=== PATIENT | male | born 1950 | race Caucasian/White ===

== ENCOUNTER 2019-11-28 06:24 | Day surgery (SDC) | payer MEDICARE, OTHER ==
[~2019-11-28] VITALS: Ht 188 cm; Wt 129.7 kg
--- NOTE | ~2019-11-28 | OR ---
[facility] [address], [place] [address] Draft DATE OF OPERATION: 11/28/2019 SURGEON: Tristian Dewitt MD PREOPERATIVE DIAGNOSES: 1. History of hyperplastic polyp 2012. 2. Family history of colon cancer (father). 3. Episodic rectal bleeding. POSTOPERATIVE DIAGNOSES: Sigmoid and left-sided diverticulosis. No evidence of polyps or cancer. PROCEDURE: Total colonoscopy to cecum. ANESTHESIA: Intravenous sedation, fentanyl 100 mcg and Versed 7 mg. INDICATION: This 69-year-old white man is a patient of Vicki Ugalde and known to me from the past having undergone colonoscopy in 2012 at which time he was found to have a hyperplastic polyp. He has family history of colon cancer in his father, who of the disease. The patient does have episodic rectal bleeding. He is admitted at this time to undergo colonoscopy. He understands the risks of bleeding, infection, perforation. FINDINGS: The prep was good. Complete colonoscopy was undertaken of the cecum. The appendiceal orifice was well visualized. There were numerous diverticula of the sigmoid and left colon, but no signs of polyps. There was no sign of hemorrhoidal disease either. DESCRIPTION OF PROCEDURE: The patient was brought to the endoscopy suite and placed in lateral decubitus position, given intravenous sedation upon slurred speech and nystagmus. Digital rectal examination was normal. An Olympus video colonoscope was passed in the rectum and manipulated throughout the colon ultimately intubating the cecum itself. The ileocecal valve and appendiceal orifice were normal. The scope was carefully withdrawn from that point and examination throughout showed no sign of polyps or colitis, only diverticular changes as previously noted in the left colon and sigmoid. Retroflexed view of the rectum was normal. The PATIENT NAME: TRISTIAN KRISHNA OPERATIVE REPORT DATE OF : 50 REPORT #: [id number] PHYSICIAN: TRISTIAN DEWITT MD PCP: VICKI UGALDE REPORT IS CONFIDENTIAL AND NOT TO BE RELEASED WITHOUT AUTHORIZATION [facility] [address], [place] [address] Draft scope was removed. The patient was taken to the recovery room in good condition. CONCLUDING DIAGNOSIS: Diverticulosis. No evidence of polyps. PLAN: Recommend repeat colonoscopy in 5 years on the basis of family history of colon cancer. Sooner, it should be done if he is having symptoms. MD CHELA Cazares/RICHIEL /[id number] cc: MARISSA Pop Copies: VICKI UGALDE ~ PATIENT NAME: TRISTIAN KRISHNA OPERATIVE REPORT DATE OF : 50 REPORT #: [id number] PHYSICIAN: TRISTIAN DEWITT MD PCP: VICKI UGALDE REPORT IS CONFIDENTIAL AND NOT TO BE RELEASED WITHOUT AUTHORIZATION
[~2019-11-28 06:24] MED LIST: DIFLUCAN150 MG PO; FLOMAX0.4 MG PO; LISINOPRIL20 MG PO
--- NOTE | 2019-11-28 08:16 | NUR ---
11/28/19 0816 Gina Loyd 0813- PT TO PACU IN LL POSITION. AWAKENS EASILY TO VOICE, ASKS AND ANSWERS QUESTIONS APPROPRIATELY. BREATHING EASY AND UNLABORED. SPO2 >90% ON 2 L O2 VIA NC. DENIES PAIN NAUSEA OR DIZZINESS. PT ENCOURAGED TO PASS GAS.
== END 2019-11-28 08:55 | disposition home or self-care (01) ==
LOC: DS 06:24 → OPS 06:24 → DS 06:30 → OPS 06:45
PROVIDERS: Surgery
PROC: 0DJD8ZZ Inspection of Lower Intestinal Tract, Via Natural or Artificial Opening Endoscopic (ICD-10-PCS; principal; 2019-11-28 06:45)
DX: K62.5 Hemorrhage of anus and rectum (principal); K57.30 Diverticulosis of large intestine without perforation or abscess without bleeding; I10 Essential (primary) hypertension; Z86.010 Personal history of colon polyps; Z80.0 Family history of malignant neoplasm of digestive organs; Z88.0 Allergy status to penicillin; Z79.899 Other long term (current) drug therapy
CPT/HCPCS: 99153; G0500; J2250; J3010; J7121